=== PATIENT | female | born 1985 | race Caucasian/White ===

== ENCOUNTER 2022-12-31 00:54 | Emergency (ER) | payer MEDICAID ==
[~2022-12-31] VITALS: Ht 165.1 cm; Wt 79.4 kg
[2022-12-31 00:57] VITALS: BP 129/66; PULSE 104; RESP 16; TEMP 97.5; O2SAT 100
[2022-12-31 04:20] VITALS: BP 129/66; PULSE 104; RESP 16; TEMP 97.5; O2SAT 100
== END 2022-12-31 04:20 | disposition left against medical advice (07) ==
LOC: MED 00:54
DX: M79.642 Pain in left hand (principal); Z53.21 Procedure and treatment not carried out due to patient leaving prior to being seen by health care provider
CPT/HCPCS: 99281

== ENCOUNTER 2022-12-31 22:34 | Emergency (ER) | payer MEDICAID ==
[~2022-12-31] VITALS: Ht 165.1 cm; Wt 79.4 kg
[2022-12-31 22:35] VITALS: BP 100/83; PULSE 86; RESP 16; TEMP 97.4; O2SAT 100
[2023-01-01 00:12] VITALS: BP 100/83; PULSE 86; RESP 16; TEMP 97.4; O2SAT 100
== END 2023-01-01 00:12 | disposition home or self-care (01) ==
LOC: MED 22:34
DX: S61.412A Laceration without foreign body of left hand, initial encounter (principal); W26.0XXA Contact with knife, initial encounter; Y93.89 Activity, other specified; Y92.89 Other specified places as the place of occurrence of the external cause; Y99.8 Other external cause status
CPT/HCPCS: 12001; 99282

== ENCOUNTER 2023-03-13 23:00 | Emergency (ER) | payer MEDICAID ==
[~2023-03-13] VITALS: Ht 165.1 cm; Wt 79.4 kg
[2023-03-13 23:05] VITALS: BP 127/69; PULSE 89; RESP 17; TEMP 97.8; O2SAT 100
[2023-03-14] MEDS ORDERED: HYDROcodone/APAP 10/325 MG 1 TAB TAB PO ONE (04:45)
[2023-03-14] MEDS ORDERED: ETHYL CHLORIDE 105 ML SPR TP ONE (05:17)
[2023-03-14] MEDS ORDERED: SULFAMETH/TRIMETH 400/80MG 1 TAB PO ONE (05:30)
[2023-03-14] MEDS ORDERED: SULF-58 PO (05:31)
[2023-03-14] MEDS ORDERED: IBUP-2213 PO (05:32)
[2023-03-14] MEDS ORDERED: ACET-10509 PO (05:32)
[2023-03-14 05:49] VITALS: BP 127/69; PULSE 89; RESP 17; TEMP 97.8; O2SAT 100
== END 2023-03-14 05:49 | disposition home or self-care (01) ==
LOC: MED 23:00
DX: H66.42 Suppurative otitis media, unspecified, left ear (principal); Z79.899 Other long term (current) drug therapy
CPT/HCPCS: 99283

== ENCOUNTER 2023-08-31 01:00 | Emergency (ER) | payer MEDICAID ==
[~2023-08-31] VITALS: Ht 165.1 cm; Wt 88.0 kg
[~2023-08-31 01:00] MED LIST: ACET-10509 PO; IBUP-2213 PO; SULF-58 PO
[2023-08-31 01:55] VITALS: BP 102/74; PULSE 95; RESP 20; TEMP 97.3; O2SAT 100
[2023-08-31] MEDS ORDERED: AMOX-1230 PO (03:51)
[2023-08-31] MEDS ORDERED: BENZ200C4 PO (03:51)
[2023-08-31] MEDS ORDERED: GUAI237L61 PO (03:51)
== END 2023-08-31 04:04 | disposition home or self-care (01) ==
LOC: MED 01:00
DX: J20.9 Acute bronchitis, unspecified (principal); J32.9 Chronic sinusitis, unspecified; Z79.899 Other long term (current) drug therapy
CPT/HCPCS: 71045; 99283